=== PATIENT | male | born 1980 | race Caucasian/White ===

== ENCOUNTER 2019-02-21 10:55 | Day surgery (SDC) | payer OTHER ==
[2019-02-20 13:29] VITALS: BMI 23.1
[2019-02-21] VITALS (13 sets, daily range): BP systolic 114–134; BP diastolic 62–93; PULSE 84–100; RESP 12–19; Ht 188 cm; Wt 82.4 kg
[~2019-02-21] VITALS: Ht 188 cm; Wt 82.4 kg
[~2019-02-21 10:55] MED LIST: CETI10TA19 PO; FLUO20CA38 PO; ZYRTEC PO
[2019-02-21] MEDS ORDERED: LACTATED RINGER'S 1,000 ML IV SCH (12:00)
[2019-02-21] MEDS ORDERED: ROCURONIUM 50 MG INJ ONE (13:08)
[2019-02-21] MEDS ORDERED: FENTAnyl 50 MCG/ML VIAL ONE (13:08)
[2019-02-21] MEDS ORDERED: PROPOFOL 20 ML ONE (13:08)
[2019-02-21] MEDS ORDERED: ROPIVACAINE 0.5 % 30 ML VIAL ONE ×3 (13:08→15:12)
[2019-02-21] MEDS ORDERED: SEVOFLURANE 15 MIN ONE (13:08)
[2019-02-21] MEDS ORDERED: MIDAZOLAM 1 MG/ML 2 ML INJ ONE (13:08)
[2019-02-21] MEDS ORDERED: CEFAZOLIN 1 GM INJ ONE (13:08)
[2019-02-21] MEDS ORDERED: ONDANSETRON 4 MG INJ ONE (14:27)
[2019-02-21] MEDS ORDERED: DEXAMETHASONE 4 MG/ML 5 ML INJ ONE (14:27)
[2019-02-21] MEDS ORDERED: METOCLOPRAMIDE 10 MG INJ ONE (14:27)
[2019-02-21] MEDS ORDERED: KETOROLAC 30 MG INJ ONE (14:28)
[2019-02-21] MEDS ORDERED: HEPARIN 1000 UNITS/ML 10 ML INJ ONE (14:39)
[2019-02-21] MEDS ORDERED: NEOMYC/POLYMYX/BACIT 30 GM OINT ONE (14:39)
[2019-02-21] MEDS ORDERED: POLYMYXIN/BACITRACIN 1L IRRIG IRR ONE (15:39)
[2019-02-21] MEDS ORDERED: SUGAMMADEX SODIUM 200 MG/2 ML VIAL IV ONE (16:25)
[2019-02-21] MEDS ORDERED: SOD CHLORIDE 0.9% 1,000 ML IV SCH (16:44)
[2019-02-21] MEDS ORDERED: ONDANSETRON 4 MG INJ IV PRN ×2 (17:00)
[2019-02-21] MEDS ORDERED: morphine 2 MG INJ IV PRN ×3 (17:00)
[2019-02-21] MEDS ORDERED: HYDROmorphONE 1 MG/5 ML IV SYRINGE IV PRN ×2 (17:00)
[2019-02-21] MEDS ORDERED: EPHEDrine 25 MG/5 ML SYG IV PRN (17:00)
[2019-02-21] MEDS ORDERED: METOCLOPRAMIDE 10 MG INJ IV PRN (17:00)
[2019-02-21] MEDS ORDERED: OXYCODONE/ACETAMINOPHEN (5/325) TAB PO PRN ×4 (17:00)
[2019-02-21] MEDS ORDERED: FENTAnyl 50 MCG/ML VIAL IV PRN ×2 (17:00)
== END 2019-02-21 18:25 | disposition home or self-care (01) ==
LOC: SDS 10:55
PROVIDERS: ATTEND Orthopaedic Surgery
DX: S72.422D Displaced fracture of lateral condyle of left femur, subsequent encounter for closed fracture with routine healing (principal); X58.XXXD Exposure to other specified factors, subsequent encounter; M94.262 Chondromalacia, left knee
CPT/HCPCS: 29877; 38221; J0690; J1100; J1644; J1885; J2250; J2405; J2765; J2795; J3010